=== PATIENT | male | born 1985 | race Caucasian/White ===

== ENCOUNTER 2021-11-25 16:29 | Emergency (ER) | payer BC, OTHER ==
[2021-11-25 18:16] LABS: ESTIMATED GFR 100 mL/min (>60)
[2021-11-25 19:48] LABS: CORONAVIRUS COVID-19 NAA NEGATIVE (NEGATIVE)
== END 2021-11-25 19:18 | disposition home or self-care (01) ==
LOC: JD.ED 16:29
DX: R07.89 Other chest pain (principal); J06.9 Acute upper respiratory infection, unspecified; F17.210 Nicotine dependence, cigarettes, uncomplicated; Z86.16 Personal history of COVID-19; Z20.822 Contact with and (suspected) exposure to COVID-19
CPT/HCPCS: 0240U; 36415; 71045; 80053; 81001; 84484; 85025; 86140; 93005; 99285; 93010; 99284

== ENCOUNTER 2022-05-19 19:45 | Emergency (ER) | payer BC ==
[2022-05-19] MEDS ORDERED: Ketorolac 30 MG/ML SDV IM ONE (20:40)
== END 2022-05-19 22:10 | disposition home or self-care (01) ==
LOC: JD.ED 19:45
DX: S86.112A Strain of other muscle(s) and tendon(s) of posterior muscle group at lower leg level, left leg, initial encounter (principal); Z72.0 Tobacco use; Z86.16 Personal history of COVID-19
CPT/HCPCS: 36415; 80053; 85025; 85379; 85610; 85730; 99283